=== PATIENT | female | born 1975 | race Caucasian/White ===

== ENCOUNTER 2017-07-29 12:48 | Emergency (ER) | payer OTHER, MEDICAID ==
[2017-07-29] MEDS ORDERED: TDAP ADULT 0.5 ML INJ (BOOSTRIX) IM ONE (14:06)
--- NOTE | 2017-07-29 14:22 | EDPHY ---
H & P Time Seen by Provider: 07/29/17 13:56 HPI/ROS: CHIEF COMPLAINT: Left hand injury HISTORY OF PRESENT ILLNESS: 42-year-old female presents to the emergency department with left hand injury. The patient was [place] in [place] and tripped over a rock and fell landing on her left side and then she got up and apparently fell again hitting her right side of her face injuring her left hand. She is right-hand dominant. The incident happened last night. She did not lose consciousness. Denies a headache. Denies neck or back pain. Denies chest pain or difficulty breathing. Denies abdominal pain or vomiting. REVIEW OF SYSTEMS: Constitutional: No fever, no chills. Eyes: No double or blurry vision. ENT: No sore throat. Respiratory: No cough, no shortness of breath. Cardiac: No chest pain. Gastrointestinal: No abdominal pain, vomiting or diarrhea. Genitourinary: No dysuria. Musculoskeletal: Left hand injury. No neck or back pain. Skin: Abrasions. No rashes. Neurological: No headache. Past Medical/Surgical History: Hysterectomy, osteoporosis, fibrocystic breast disease, asthma, chronic bronchitis, bipolar, severe depression, PTSD, fibromyalgia Social History: and lives in [place] Smoking Status: Current every day smoker Physical Exam: General Appearance: Alert, no distress. Mentating normally and answering questions appropriately. Superficial abrasion just superior to the right eyelid. Eyes: Pupils equal and round. Extraocular motions are all intact. ENT: Mouth: Mucous membranes moist. Respiratory: No wheezing, rhonchi, or rales, lungs are clear to auscultation. Cardiovascular: Regular rate and rhythm. Gastrointestinal: Abdomen is soft and nontender, no masses, no rebound or guarding, bowel sounds normal. Neurological: Alert and oriented x 3, cranial nerves II through XII grossly intact Skin: Superficial healing abrasions to the anterior lateral aspect of the left shoulder, lateral aspect of her left cheek. Very superficial abrasion to the right shoulder. There also superficial abrasions noted to left palm more so over the metacarpal heads. No evidence of open fracture. Warm and dry, no rashes. Musculoskeletal: Nontender to palpate along the cervical, thoracic or lumbar spine. Neck is supple. Extremities: Swelling noted to her left hand. Reproducible pain with palpation over the metacarpal. There is also ecchymosis noted to the palm of the left hand. No rotational deformities noted. Normal sensation to light touch with normal 2 point discrimination. The other fingers do not appear injured. Full range of motion of her left wrist and left elbow and left shoulder. Full range of motion of her right upper extremities and lower extremities bilaterally. Psychiatric: Patient is oriented X 3, there is no agitation. Constitutional: Initial Vital Signs Temperature (C) 36.9 C 07/29/17 12:56 Heart Rate 91 07/29/17 12:56 Respiratory Rate 16 07/29/17 12:56 Blood Pressure 100/74 07/29/17 12:56 O2 Sat (%) 92 07/29/17 12:56 O2 Delivery Mode Room Air Allergies/Adverse Reactions: No Known Allergies Allergy (Unverified 07/29/17 12:54) Home Medications: Medication Instructions Recorded Advair 500/50 (*) 07/29/17 Albuterol 07/29/17 Gabapentin 07/29/17 Ibuprofen 600 mg PO TID PRN #30 tablet 07/29/17 Lamotrigine 07/29/17 Metaxalone 07/29/17 OXcarbazepine 07/29/17 Omeprazole 07/29/17 Xanax 07/29/17 Medical Decision Making - Diagnostics Imaging Results: Imaging Impressions Hand X-Ray 07/29/17 13:30 Impression: Impacted angulated and displaced fracture at the base of the fifth metacarpal. Fracture involves the articular surface. Imaging: I viewed and interpreted images myself Procedures: Patient was placed in ulnar gutter fiberglass splint and examined post application in good placement with normal DIRECTOR ERP. ED Course/Re-evaluation: 42-year-old female presents to the emergency department with left hand injury. X-rays reveal fracture to the base of the 5th metacarpal. Patient was placed in Ortho Glass splint. She was given orthopedic referral and will follow up tomorrow or Wednesday to recheck. She understands that she will likely require surgical repair. The no evidence of open fracture on examination. Differential Diagnosis: Including but not limited to fracture, dislocation, contusion, sprain - Data Points Medications Given: Discontinued Medications Diphtheria/Tetanus/Acell Pertussis (Boostrix) 0.5 ml IM .ONCE ONE Stop: 07/29/17 14:07 Last Admin: 07/29/17 14:17 Dose: 0.5 ml Ibuprofen (Motrin) 600 mg PO EDNOW ONE Stop: 07/29/17 14:40 Last Admin: 07/29/17 14:47 Dose: 600 mg Departure - Departure Disposition: Home, Routine, Self-Care Clinical Impression: Fracture of fifth metacarpal bone of left hand Qualifiers: Encounter type: initial encounter Fracture type: closed Metacarpal location: base Fracture alignment: displaced Qualified Code(s): S62.317A - Displaced fracture of base of fifth metacarpal bone, left hand, initial encounter for closed fracture Condition: Good Instructions: Hand Fracture (ED) Additional Instructions: Keep splint on and keep it dry. Ice and elevate to help reduce swelling. Ibuprofen 600 mg every 8 hr as needed for pain. Referrals: Walter Givens MD [Medical Doctor] - As per Instructions (Orthopedic hand surgeon on-call) Prescriptions: Ibuprofen 600 mg PO TID PRN #30 tablet PRN Reason: P.r.n. Pain
[2017-07-29] MEDS ORDERED: IBUPROFEN 600 MG TAB PO ONE (14:39)
[2017-07-29 14:48] VITALS: BP 120/84
== END 2017-07-29 14:54 | disposition home or self-care (01) ==
DX: S62.317A Displaced fracture of base of fifth metacarpal bone, left hand, initial encounter for closed fracture (principal); J45.909 Unspecified asthma, uncomplicated; W01.198A Fall on same level from slipping, tripping and stumbling with subsequent striking against other object, initial encounter; Y92.510 Bank as the place of occurrence of the external cause; Y99.8 Other external cause status; F17.200 Nicotine dependence, unspecified, uncomplicated; Z23 Encounter for immunization

== ENCOUNTER 2017-08-31 08:18 | Emergency (ER) | payer OTHER, MEDICAID ==
[2017-08-31] MEDS ORDERED: IPRATROPIUM/ALBUTEROL 3 ML DEYVIAL ONE (08:23)
[2017-08-31] MEDS ORDERED: IPRATROPIUM/ALBUTEROL 3 ML DEYVIAL IH ONE (08:24)
[2017-08-31] MEDS ORDERED: methylPREDNISolone SOD SUCC 125 MG/2 ML VIAL IVP ONE (08:24)
--- NOTE | 2017-08-31 08:28 | EDPHY ---
H & P Time Seen by Provider: 08/31/17 08:24 HPI/ROS: CHIEF COMPLAINT: Shortness of breath HISTORY OF PRESENT ILLNESS: The patient is a 42-year-old smoker with a history of COPD who reports increasing shortness of breath and cough productive of yellow sputum over the last few days. She also reports fever of 100 yesterday at home. She ran out of her albuterol this morning. She called EMS who gave her a DuoNeb and placed on 4 L nasal cannula. They state that she was saturating 80% when they arrived. She denies cardiac history. She states that her symptoms worsened over the last 2 days. REVIEW OF SYSTEMS: Constitutional: denies: chills, fever, recent illness, recent injury EENTM: denies: blurred vision, double vision, nose congestion Respiratory: See HPI Cardiac: denies: chest pain, irregular heart rate, lightheadedness, palpitations Gastrointestinal/Abdominal: denies: abdominal pain, diarrhea, nausea, vomiting, blood streaked stools Genitourinary: denies: dysuria, frequency, hematuria, pain Musculoskeletal: denies: joint pain, muscle pain Skin: denies: lesions, rash, jaundice, bruising Neurological: denies: headache, numbness, paresthesia, tingling, dizziness, weakness Hematologic/Lymphatic: denies: blood clots, easy bleeding, easy bruising Immunologic/allergic: denies: HIV/AIDS, transplant EXAM: GENERAL: Well-appearing, well-nourished and in moderate distress. HEAD: Atraumatic, normocephalic. EYES: Pupils equal round and reactive to light, extraocular movements intact, sclera anicteric, conjunctiva are normal. ENT: TMs normal, nares patent, oropharynx clear without exudates. Moist mucous membranes. NECK: Normal range of motion, supple without lymphadenopathy or JVD. LUNGS: Bilateral expiratory wheezes and rhonchi HEART: Regular rate and rhythm without murmurs, rubs or gallops. ABDOMEN: Soft, nontender, normoactive bowel sounds. No guarding, no rebound. No masses appreciated. BACK: No CVA tenderness, no spinal tenderness, step-offs or deformities EXTREMITIES: Normal range of motion, no pitting or edema. No clubbing or cyanosis. NEUROLOGICAL: Cranial nerves II through XII grossly intact. Normal speech, normal gait. 5/5 strength, normal movement in all extremities, normal sensation PSYCH: Normal mood, normal affect. SKIN: Warm, dry, normal turgor, no visible rashes or lesions. Source: Patient, EMS Exam Limitations: No limitations - Medical/Surgical History Hx Asthma: Yes Hx Chronic Respiratory Disease: Yes Hx Diabetes: No Hx Cardiac Disease: No Hx Renal Disease: No Hx Cirrhosis: No Hx Alcoholism: No Hx HIV/AIDS: No Hx Splenectomy or Spleen Trauma: No Other PMH: hysterectomy, osteoporosis, fibrocystic breast disease, asthma, chronic bronchitis, bipolar, severe depression, PTSD, fibromyalgia - Family History Significant Family History: No pertinent family hx - Social History Smoking Status: Current every day smoker Alcohol Use: Sober Constitutional: Initial Vital Signs Temperature (C) 37.5 C 08/31/17 08:18 Heart Rate 100 08/31/17 08:18 Respiratory Rate 24 H 08/31/17 08:18 Blood Pressure 126/81 H 08/31/17 08:18 O2 Sat (%) 87 L 08/31/17 08:18 O2 Delivery Mode Room Air O2 (L/minute) 3 Allergies/Adverse Reactions: No Known Allergies Allergy (Unverified 08/31/17 08:27) Home Medications: Medication Instructions Recorded Advair 500/50 (*) 07/29/17 Albuterol 07/29/17 Gabapentin 07/29/17 Ibuprofen 600 mg PO TID PRN #30 tablet 07/29/17 Lamotrigine 07/29/17 Metaxalone 07/29/17 OXcarbazepine 07/29/17 Omeprazole 07/29/17 Xanax 07/29/17 Albuterol [Proventil Neb] 3 ml IH QID PRN #30 deyvial 08/31/17 Benadryl 08/31/17 Sennosides/Docusate Sodium 08/31/17 [Senna-S Tablet] levOFLOXACIN [levAQUIN] 750 mg PO DAILY #10 tab 08/31/17 predniSONE 60 mg PO DAILY #15 tab 08/31/17 Medical Decision Making - Diagnostics EKG Interpretation: An EKG obtained and was read and documented in trace view. Please see trace view for full reading and report. Sinus rhythm no acute ischemic changes Imaging Results: Imaging Impressions Chest X-Ray 08/31/17 08:25 Impression: Bilateral pneumonia, worse in the right middle lobe. Findings and recommendations discussed with Emergency Department physician, Jorge Luis Moody at 9:35 hour, 08/31/2017. Final report concurs with initial preliminary interpretation. Imaging: Discussed imaging studies w/ call center coordinator Radiologist ED Course/Re-evaluation: 10:25 a.m. I offered admission for pneumonia and COPD exacerbation however the patient is very motivated to go home. She is saturating 92% on room air. She promises to return if her symptoms worsen. She is requesting a prescription for albuterol nebulizer ampules. Will also give her prescription for prednisone and Levaquin. She is happy with this and declines further observation or treatment. Differential Diagnosis: Partial list of the Differential diagnosis considered include but were not limited to; pneumonia, COPD exacerbation, and although unlikely based on the history and physical exam, I also considered pneumothorax, PE, acute coronary disease, CHF. I discussed these differential diagnoses and the plan with the patient as well as the usual and expected course. The patient understands that the diagnosis is provisional and that in medicine we are not always correct and that further workup is often warranted. Usual and customary warnings were given. All of the patient's questions were answered. The patient was instructed to return to the emergency department should the symptoms at all worsen or return, otherwise to followup with the physician as we discussed. - Data Points Laboratory Results: Laboratory Results 08/31/17 08:30 08/31/17 08:30 08/31/17 08/31/17 08/31/17 08:30 08:30 08:30 WBC RBC Hgb Hct MCV MCH MCHC RDW Plt Count MPV Neut % (Auto) Lymph % (Auto) [place] % (Auto) Eos % (Auto) Baso % (Auto) Nucleat RBC Rel Count Absolute Neuts (auto) Absolute Lymphs (auto) Absolute Monos (auto) Absolute Eos (auto) Absolute Basos (auto) Absolute Nucleated RBC Immature Gran % Immature Gran # PT 13.6 SEC SEC (12.0-15.0) INR 1.02 (0.83-1.16) APTT 45.7 SEC H SEC (23.0-38.0) VBG Lactic Acid 0.9 mmol/L mmol/L (0.7-2.1) Sodium 129 mEq/L L mEq/L (135-145) Potassium 3.7 mEq/L mEq/L (3.3-5.0) Chloride 91 mEq/L L mEq/L (97-110) Carbon Dioxide 23 mEq/l mEq/l (22-31) Anion Gap 15 mEq/L mEq/L (8-16) BUN 10 mg/dL mg/dL (7-23) Creatinine 0.6 mg/dL mg/dL (0.6-1.0) Estimated GFR > 60 Glucose 105 mg/dL H mg/dL (70-100) Calcium 9.0 mg/dL mg/dL (8.5-10.4) Total Bilirubin 0.5 mg/dL mg/dL (0.1-1.4) 08/31/17 08:30 WBC 11.92 10^3/uL H 10^3/uL (3.80-9.50) RBC 3.98 10^6/uL L 10^6/uL (4.18-5.33) Hgb 12.6 g/dL g/dL (12.6-16.3) Hct 34.4 % L % (38.0-47.0) MCV 86.4 fL fL (81.5-99.8) MCH 31.7 pg pg (27.9-34.1) MCHC 36.6 g/dL g/dL (32.4-36.7) RDW 12.6 % % (11.5-15.2) Plt Count 258 10^3/uL 10^3/uL (150-400) MPV 8.7 fL fL (8.7-11.7) Neut % (Auto) 83.4 % H % (39.3-74.2) Lymph % (Auto) 9.1 % L % (15.0-45.0) [place] % (Auto) 6.5 % % (4.5-13.0) Eos % (Auto) 0.2 % L % (0.6-7.6) Baso % (Auto) 0.2 % L % (0.3-1.7) Nucleat RBC Rel Count 0.0 % % (0.0-0.2) Absolute Neuts (auto) 9.95 10^3/uL H 10^3/uL (1.70-6.50) Absolute Lymphs (auto) 1.08 10^3/uL 10^3/uL (1.00-3.00) Absolute Monos (auto) 0.78 10^3/uL 10^3/uL (0.30-0.80) Absolute Eos (auto) 0.02 10^3/uL L 10^3/uL (0.03-0.40) Absolute Basos (auto) 0.02 10^3/uL 10^3/uL (0.02-0.10) Absolute Nucleated RBC 0.00 10^3/uL 10^3/uL (0-0.01) Immature Gran % 0.6 % % (0.0-1.1) Immature Gran # 0.07 10^3/uL 10^3/uL (0.00-0.10) PT INR APTT VBG Lactic Acid Sodium Potassium Chloride Carbon Dioxide Anion Gap BUN Creatinine Estimated GFR Glucose Calcium Total Bilirubin Microbiology Results: MICROBIOLOGY 08/31/17 09:30 Nasal, Sinus - Swab Respiratory Panel (PCR) - Final Human Rhinovirus/Enterovirus Medications Given: Discontinued Medications Albuterol (Proventil Neb) 3 ml IH EDNOW ONE Stop: 08/31/17 09:09 Last Admin: 08/31/17 09:10 Dose: 3 ml Albuterol/Ipratropium (Duoneb) 3 ml IH EDNOW ONE Stop: 08/31/17 08:25 Last Admin: 08/31/17 08:32 Dose: 3 ml Levofloxacin/Dextrose (Levaquin 750 Mg (Premix)) 150 mls @ 100 mls/hr IV EDNOW ONE PRN Reason: Protocol Stop: 08/31/17 09:53 Last Admin: 08/31/17 08:58 Dose: 150 mls Methylprednisolone Sodium Succinate (Solu-Medrol) 125 mg IVP EDNOW ONE Stop: 08/31/17 08:25 Last Admin: 08/31/17 08:42 Dose: 125 mg Departure - Departure Disposition: Home, Routine, Self-Care Clinical Impression: Chronic obstructive pulmonary disease with acute exacerbation Pneumonia Qualifiers: Pneumonia type: due to unspecified organism Laterality: bilateral Lung location : unspecified part of lung Qualified Code(s): J18.9 - Pneumonia, unspecified organism Condition: Fair Instructions: COPD (Chronic Obstructive Pulmonary Disease) (ED), Bacterial Pneumonia (ED) Referrals: Patient,NotPresent [Unknown] - As per Instructions Hector Wright MD [[facility] Primary Care Provider] - As per Instructions Prescriptions: Albuterol [Proventil Neb] 3 ml IH QID PRN #30 deyvial PRN Reason: Short Of Breath/Dyspnea levOFLOXACIN [levAQUIN] 750 mg PO DAILY #10 tab predniSONE 60 mg PO DAILY #15 tab
--- NOTE | 2017-08-31 08:32 | CPEKG ---
Heart Rate: 90 RR Interval: 667 P-R Interval: 144 QRSD Interval: 84 QT Interval: 372 QTC Interval: 455 P Newsoms: 77 QRS Newsoms: 63 T Wave Newsoms: 50 EKG Severity - NORMAL ECG - EKG Impression: SINUS RHYTHM Electronically Signed By: Shree Cuevas 01-Sep-2017 06:54:38
[2017-08-31 08:54] LABS: PLATELET COUNT 258 10^3/uL (150-400)
[2017-08-31] MEDS ORDERED: ALBUTEROL 3 ML DEYVIAL ONE (09:06)
[2017-08-31] MEDS ORDERED: ALBUTEROL 3 ML DEYVIAL IH ONE (09:08)
[2017-08-31 09:09] LABS: INR 1.02 (0.83-1.16); PROTIME(PATIENT) 13.6 SEC (12.0-15.0)
[2017-08-31 10:47] VITALS: BP 123/72
== END 2017-08-31 10:47 | disposition home or self-care (01) ==
LOC: EDUNIT#
DX: J18.9 Pneumonia, unspecified organism (principal); J44.1 Chronic obstructive pulmonary disease with (acute) exacerbation; F17.200 Nicotine dependence, unspecified, uncomplicated
CPT/HCPCS: 71046; 93005; 96374; 96375; 99285; J1956; J2930; J7613

== ENCOUNTER → 2018-05-16 | Outpatient (CLI) | payer OTHER, MEDICAID | LOC: BMCIMAGING 13:53 | PROVIDERS: ATTEND Nurse Practitioner Family | DX: Z13.820 Encounter for screening for osteoporosis (principal); M81.0 Age-related osteoporosis without current pathological fracture ==